=== PATIENT | female | born 1945 | race Caucasian/White ===

== ENCOUNTER 2017-08-29 20:37 | Inpatient (IN) | payer MEDICARE, BC ==
--- NOTE | 2017-08-29 22:41 | EDM.PDOC ---
ED HPI GENERAL MEDICAL PROBLEM - General Chief Complaint: Abdominal Pain Stated Complaint: FEVER/ABDOMINAL PAINS X 3 DAYS Time Seen by Provider: 08/29/17 20:53 Source of Information: Reports: Patient History Limitations: Reports: No Limitations - History of Present Illness INITIAL COMMENTS - FREE TEXT/NARRATIVE: This is a 72-year-old female. She saw her family doctor on Thursday and had blood work done that was completely normal. Then about 3 days ago she started having mid abdominal cramps and she went to the bathroom maybe 5 times that day with very small bowel movements and lots of gas. This continued yesterday with the same small bowel movements many times in gas. Then today she again really had no bowel movements but was passing mucus that was pretty much clearer and did not smell bad. She also states that this afternoon she had a fever of 102.8 orally when she got to the ER it was 101.9. She has been eating normally and denies any nausea or vomiting. She does have a history of 2 recent tick bites but she does not have any particular rash at the site oral bolus light rash noted at the sites. She has a history of 2 C-sections in the past she has no history of irritable bowel syndrome Crohn's or colitis and she has no history of constipation. Presently she is not having any particular pain or symptoms. 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 COORDINATOR: Reports: Other (see below) Other 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 COORDINATOR: none - Related Data Allergies Allergy/AdvReac Type Severity Reaction Status Date / Time minocycline AdvReac Dizziness Verified 08/30/17 00:40 Home Meds: Home Meds Aspirin [Children's Aspirin] 81 mg PO DAILY 12/10/13 [History] Ca Cmb No.1/Vit D3/B-6/FA/B12 [Vitamin D3 1,000 Unit] 1 tab PO DAILY 12/10/13 [ History] Calcium Citrate/Vitamin D3 [Calcium Citrate - Vit D3 Tab] 1 tab PO DAILY [History] Gluc HCl/Csa/Danya Hy/Hyalur Ac [Glucosamine Chondroitin] 1 tab PO DAILY [History] Hydrochlorothiazide 12.5 mg PO DAILY 12/10/13 [History] Lactobacillus Acidophilus [Probiotic] 1 each PO DAILY 12/10/13 [History] Multivit-Min/FA/Lycopene/Lut [Centrum Silver] 1 tab PO DAILY 12/10/13 [History] Valsartan/Hydrochlorothiazide [Valsartan-Hctz 320-12.5 mg Tab] 320 mg PO DAILY 12/10/13 [History] Nebivolol [Bystolic] 2.5 mg PO BID 10/08/15 [History] Fish Oil/[place]-3 Fatty Acids [Fish Oil] 1 each PO DAILY 08/29/17 [History] Fish Oil/[place]-3 Fatty Acids [Fish Oil] 1 tab PO DAILY 08/29/17 [History] Garlic [Garlique] 0 mg PO DAILY 08/29/17 [History] Ibuprofen [Motrin] 600 mg PO ASDIRECTED 08/29/17 [History] Magnesium 0 mg PO DAILY 08/29/17 [History] Pravastatin [Pravachol] 40 mg PO BEDTIME 08/29/17 [History] Ubidecarenone [Co Q-10] 0 mg PO DAILY 08/29/17 [History] Vit C/Mcmillan & Celery Ex/Grp E [Tart Mcmillan] 1 cap PO DAILY 08/29/17 [History] Past Medical History HEENT History: Reports: Impaired Vision Cardiovascular History: Reports: Hypertension Genitourinary History: Reports: UTI, Recurrent 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: Musculoskeletal History: Reports: Back Pain, Chronic Neurological History: Reports: Cerebral Aneurysms - Past Surgical History Female Surgical History: Reports: Section Social & Family History - Family History Family Medical History: Noncontributory Cardiac: Reports: Hypertension Musculoskeletal: Reports: Other (See Below) Other Musculoskeletal Family History: ALS Oncologic: Reports: Bladder, Breast, Hodgkin's Lymphoma, Leukemia, Lung - Tobacco Use Smoking Status *Q: Former Smoker Used Tobacco, but Quit: Yes Month/Year Tobacco Last Used: 35 yr - Caffeine Use Caffeine Use: Reports: Coffee, Soda - Recreational Drug Use Recreational Drug Use: No ED ROS GENERAL - Review of Systems Review Of Systems: See Below Constitutional: Reports: Fever, Chills HEENT: Denies: Sinus Problem, Throat Pain Respiratory: Denies: Shortness of Breath, Cough Cardiovascular: Denies: Chest Pain Endocrine: Reports: No Symptoms GI/Abdominal: Reports: Abdominal Pain. Denies: Black Stool, Bloody Stool, Constipation, Diarrhea, Nausea, Vomiting : Denies: Dysuria Musculoskeletal: Reports: No Symptoms Skin: Reports: No Symptoms Neurological: Reports: No Symptoms Psychiatric: Reports: No Symptoms Hematologic/Lymphatic: Reports: No Symptoms ED EXAM, GI/ABD - Physical Exam Exam: See Below Exam Limited By: No Limitations General Appearance: Alert, WD/WN, No Apparent Distress Eyes: Bilateral: Normal Appearance Ears: Normal External Exam Nose: Normal Inspection Throat/Mouth: Normal Inspection, Normal Lips, Normal Oropharynx, Normal Voice, No Airway Compromise Head: Normocephalic Neck: Supple Respiratory/Chest: No Respiratory Distress, Lungs Clear, Normal Breath Sounds Cardiovascular: Regular Rate, Rhythm, No Murmur GI/Abdominal Exam: Soft, Other (She does not have any localized pain on palpation of her abdomen and her bowel sounds are positive but they are quiet, when she points to where it bothers her when she gets the cramps that seems to be the mid abdomen area, the lower quadrants are not significantly tender on palpation, her upper quadrant both left and right are not particularly tender on palpation) Back Exam: Full Range of Motion Extremities: Normal Inspection, Normal Range of Motion Neurological: Alert, Oriented Psychiatric: Normal Affect, Normal Mood Skin Exam: Warm, Dry, Other (The to tick bite areas one on her left flank and one on her right buttocks has some local inflammation but no rash and no bull's- eye rash noted) Course - Vital Signs Last Recorded V/S: Last Vital Signs Temp 100.7 F H 08/29/17 23:15 Pulse 87 08/29/17 20:55 Resp 20 08/29/17 20:55 BP 166/66 H 08/29/17 20:55 Pulse Ox 96 08/29/17 20:55 - Orders/Labs/Meds Orders: Active Orders 24 hr Category Date Time Status Abdomen 2V AP Flat Upright [CR] Stat Exams 08/29/17 21:24 Taken Abdomen Pelvis w Cont [CT] Stat Exams 08/29/17 22:35 Taken Levofloxacin/Dextrose 5%-Water [Levaquin in D5W 750 MG/ Med 08/30/17 00:55 Ordered 150 ML] 750 mg Premix Bag 1 bag IV ONETIME Labs: Laboratory Tests 08/29/17 08/29/17 08/29/17 Range/Units 20:55 20:55 21:36 WBC 17.45 H (3.98-10.04) K/mm3 RBC 4.66 (3.98-5.22) M/mm3 Hgb 13.3 (11.2-15.7) gm/L Hct 41.7 (34.1-44.9) % MCV 89.5 (79.4-94.8) fl MCH 28.5 (25.6-32.2) pg MCHC 31.9 L (32.2-35.5) g/dl RDW Std Deviation 44.2 (36.4-46.3) fL Plt Count 241 (182-369) K/mm3 MPV 10.8 (9.4-12.3) fl Neut % (Auto) 78.3 H (34.0-71.1) % Lymph % (Auto) 12.5 L (19.3-51.7) % [place] % (Auto) 8.2 (4.7-12.5) % Eos % (Auto) 0.5 L (0.7-5.8) Baso % (Auto) 0.2 (0.1-1.2) % Neut # (Auto) 13.66 H (1.56-6.13) K/mm3 Lymph # (Auto) 2.18 (1.18-3.74) K/mm3 [place] # (Auto) 1.43 H (0.24-0.36) K/mm3 Eos # (Auto) 0.08 (0.04-0.36) K/mm3 Baso # (Auto) 0.04 (0.01-0.08) K/mm3 Sodium 138 (136-145) mEq/L Potassium 4.0 (3.5-5.1) mEq/L Chloride 101 (98-107) mEq/L Carbon Dioxide 27 (21-32) mEq/L Anion Gap 14.0 (5-15) BUN 16 (7-18) mg/dL Creatinine 1.0 (0.55-1.02) mg/dL Est Cr Clr Drug Dosing 48.00 mL/min Estimated GFR (MDRD) 54 (>60) mL/min BUN/Creatinine Ratio 16.0 (14-18) Glucose 116 H (83-115) mg/dL Calcium 9.0 (8.5-10.1) mg/dL Total Bilirubin 0.4 (0.2-1.0) mg/dL AST 14 L (15-37) U/L ALT 21 (14-59) U/L Alkaline Phosphatase 75 (46-116) U/L Total Protein 7.8 (6.4-8.2) g/dl Albumin 3.8 (3.4-5.0) g/dl Globulin 4.0 gm/dL Albumin/Globulin Ratio 1.0 (1-2) Lipase 106 (73-393) U/L Urine Color Yellow (Yellow) Urine Appearance Clear (Clear) Urine pH 8.0 (5.0-8.0) Ur Specific [place] 1.020 (1.005-1.030) Urine Protein Trace H (Negative) Urine Glucose (UA) Negative (Negative) Urine Ketones Negative (Negative) Urine Occult Blood 1+ H (Negative) Urine Nitrite Negative (Negative) Urine Bilirubin Negative (Negative) Urine Urobilinogen 0.2 (0.2-1.0) Ur Leukocyte Esterase Negative (Negative) Urine RBC 5-10 H (0-5) /hpf Urine WBC Not seen (0-5) /hpf Ur Epithelial Cells Not seen (0-5) /hpf Urine Bacteria Rare (FEW) /hpf Urine Mucus Not seen (FEW) /hpf Meds: Medications Discontinued Medications Generic Name Dose Route Start Last Admin Trade Name Freq PRN Reason Stop Dose Admin Diatrizoate Meglum/Diatrizoate Sod 90 ml 08/29/17 23:34 08/29/17 23:48 Gastrografin 37% PO 08/29/17 23:35 90 ml ONETIME ONE Administration Iopamidol 125 ml 08/29/17 23:34 08/29/17 23:49 Isovue-300 (61%) IVPUSH 08/29/17 23:35 125 ml ONETIME ONE Administration Sodium Chloride 10 ml 08/29/17 23:34 08/29/17 23:49 Saline Flush FLUSH 08/29/17 23:35 10 ml ONETIME ONE Administration - Radiology Interpretation Free Text/Narrative:: CT scan of the abdomen would a uncomplicated sigmoid colon diverticulitis. - Re-Assessments/Exams Free Text/Narrative Re-Assessment/Exam: 08/30/17 00:56 I spoke to the patient regarding the CT scan findings. Her CT scan findings with the elevated white count and the fever suggests that she needs inpatient IV antibiotics until the white count comes down and the fever resolves. The patient is willing to be admitted for this. 08/30/17 00:[address] Olguin and she is willing to admit the patient for further evaluation and treatment Departure - Departure Time of Disposition: 00:58 Disposition: Admitted As Inpatient 64 Condition: Fair Clinical Impression: Sigmoid diverticulitis, Febrile illness, acute Leukocytosis Qualifiers: Leukocytosis type: unspecified Qualified Code(s): D72.829 - Elevated white blood cell count, unspecified - Discharge Information ED Communication - ED Communication Date/Time Date: 08/30/17 Time Called: 00:58 - Discussed Case With (1) Discussed Case With (1): Admitting Provider Person/s Notified (1): Brianna Olguin (She was admitted for further evaluation and treatment) - My Orders Last 24 Hours: My Active Orders 08/29/17 21:24 Abdomen 2V AP Flat Upright [CR] Stat 08/29/17 22:35 Abdomen Pelvis w Cont [CT] Stat 08/30/17 00:55 Levofloxacin/Dextrose 5%-Water [Levaquin in D5W 750 MG/150 ML] 750 mg Premix Bag 1 bag IV ONETIME - Assessment/Plan Last 24 Hours: My Active Orders 08/29/17 21:24 Abdomen 2V AP Flat Upright [CR] Stat 08/29/17 22:35 Abdomen Pelvis w Cont [CT] Stat 08/30/17 00:55 Levofloxacin/Dextrose 5%-Water [Levaquin in D5W 750 MG/150 ML] 750 mg Premix Bag 1 bag IV ONETIME
[2017-08-29] MEDS ORDERED: Diatrizoate Meglumine/Diatrizoate Sodium 37% 120 ML Bottle PO ONE (23:34)
[2017-08-29] MEDS ORDERED: Sodium Chloride 0.9% 10 ML Syringe FLUSH ONE (23:34)
[2017-08-29] MEDS ORDERED: Iopamidol 612 MG/ML 150 ML Bottle IVPUSH ONE (23:34)
[2017-08-30] MEDS ORDERED: Levofloxacin/Dextrose 5%-Water 750 MG in Premix Bag 1 BAG IV ONE (00:55)
[2017-08-30] MEDS ORDERED: Sodium Chloride 0.9% 1,000 ML IV SCH ×2 (03:00→04:45)
[2017-08-30] MEDS ORDERED: HYDROmorphone 2 MG Tab PO PRN (04:34)
[2017-08-30] MEDS ORDERED: HYDROmorphone 0.5 MG/0.5 ML SYRINGE IVPUSH PRN ×2 (04:38→04:40)
[2017-08-30] MEDS ORDERED: Ondansetron 4 MG/2 ML SDV IVPUSH PRN (04:40)
--- NOTE | 2017-08-30 13:47 | PCM.HP ---
H&P History of Present Illness - General Date of Service: 08/30/17 Admit Problem/Dx: Admission Diagnosis/Problem Admission Diagnosis/Problem Diverticulitis Source of Information: Patient, Provider History Limitations: Reports: No Limitations - History of Present Illness Initial Comments - Free Text/Narative: 72 year old female with 3-4 days history of abdominal pain, has been admitted for diverticulitis. She had a documented fever of 102.8 RO[address] ADVISOR. The ED documented 101.9. The patient has had nausea with vomiting, this has occurred with frequent bowel movements. The stool had associated mucous but no blood. She has had no previous episodes. The patient's WBCs are 17, 000. There is a left shift. A CT of the abdomen/pelvis shows sigmoid colon diverticulitis. Levoquin was started in the ED, Flagyl will be started on admission. The patient will go to [place] with telemetry. She is a full code. Onset of Symptoms: Reports: Gradual Symptom Onset Date: 08/27/17 Duration of Symptoms: Reports: Day(s):, Getting Worse Location: Reports: Abdomen, Generalized Severity: Moderate Improves with: Reports: Medication Worsens with: Reports: Eating Associated Symptoms: Reports: Loss of Appetite, Nausea/Vomiting, Weakness - Related Data Allergies/Adverse Reactions: Allergies Allergy/AdvReac Type Severity Reaction Status Date / Time minocycline AdvReac Dizziness Verified 08/30/17 00:40 Home Medications: Home Meds Aspirin [Children's Aspirin] 81 mg PO DAILY 12/10/13 [History] Gluc HCl/Csa/Danya Hy/Hyalur Ac [Glucosamine Chondroitin] 1 tab PO DAILY [History] Lactobacillus Acidophilus [Probiotic] 1 each PO DAILY 12/10/13 [History] Multivit-Min/FA/Lycopene/Lut [Centrum Silver] 1 tab PO DAILY 12/10/13 [History] Valsartan/Hydrochlorothiazide [Valsartan-Hctz 320-12.5 mg Tab] 320 mg PO DAILY 12/10/13 [History] Nebivolol [Bystolic] 2.5 mg PO BID 10/08/15 [History] Fish Oil/[place]-3 Fatty Acids [Fish Oil] 1 each PO DAILY 08/29/17 [History] Garlic [Garlique] 1 tab PO DAILY 08/29/17 [History] Ibuprofen [Motrin] 600 mg PO ASDIRECTED 08/29/17 [History] Magnesium 1 tab PO DAILY 08/29/17 [History] Pravastatin [Pravachol] 40 mg PO BEDTIME 08/29/17 [History] Ubidecarenone [Co Q-10] 1 tab PO DAILY 08/29/17 [History] Vit C/Mcmillan & Celery Ex/Grp E [Tart Mcmillan] 1 cap PO DAILY 08/29/17 [History] Allopurinol [Zyloprim] 50 mg PO BEDTIME 08/30/17 [History] Calcium Citrate/Vitamin D3 [Calcium Citrate - Vit D Caplet] 1 tab PO DAILY 08/30 [History] Carboxymethyl/Glycerin/Poly80 [Refresh Optive Advanced Drops] 1 drop EYEBOTH DAILY 08/30/17 [History] Cholecalciferol (Vitamin D3) [Vitamin D3] 1,000 units PO DAILY 08/30/17 [History ] Past Medical History HEENT History: Reports: Impaired Vision Cardiovascular History: Reports: Hypertension Genitourinary History: Reports: UTI, Recurrent 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: Musculoskeletal History: Reports: Back Pain, Chronic Neurological History: Reports: Cerebral Aneurysms - Infectious Disease History Infectious Disease History: Reports: Chicken Pox, Influenza, Measles - Past Surgical History HEENT Surgical History: Reports: Tonsillectomy Female Surgical History: Reports: Section Social & Family History - Family History Family Medical History: Noncontributory Cardiac: Reports: Hypertension Musculoskeletal: Reports: Other (See Below) Other Musculoskeletal Family History: ALS Oncologic: Reports: Bladder, Breast, Hodgkin's Lymphoma, Leukemia, Lung - Tobacco Use Smoking Status *Q: Former Smoker Years of Tobacco use: 7 Packs/Tins Daily: 0.5 Used Tobacco, but Quit: Yes Month/Year Tobacco Last Used: 03/1979 Second Hand Smoke Exposure: No - Caffeine Use Caffeine Use: Reports: Coffee - Recreational Drug Use Recreational Drug Use: No H&P Review of Systems - Review of Systems: Review Of Systems: See Below General: Reports: Fever, Chills, Malaise, Weakness HEENT: Reports: No Symptoms Pulmonary: Reports: No Symptoms Cardiovascular: Reports: No Symptoms Gastrointestinal: Reports: Abdominal Pain, Mucous in Stool Genitourinary: Reports: No Symptoms Musculoskeletal: Reports: No Symptoms Skin: Reports: No Symptoms Psychiatric: Reports: No Symptoms Neurological: Reports: No Symptoms Hematologic/Lymphatic: Reports: No Symptoms Immunologic: Reports: No Symptoms Exam - Exam Exam: See Below - Vital Signs Vital Signs: Last Vital Signs Temp 37.2 C 08/30/17 08:03 Pulse 73 08/30/17 08:03 Resp 18 08/30/17 08:03 BP 129/47 L 08/30/17 08:03 Pulse Ox 96 08/30/17 08:03 Weight: 54.839 kg - Exam Quality Assessment: Supplemental Oxygen, DVT Prophylaxis General: Alert, Oriented, Cooperative HEENT: Conjunctiva Clear, Nares Patent, Normal Nasal Septum, Pupils Equal, Pupils Reactive, PERRLA Neck: Supple, Trachea Midline Lungs: Normal Respiratory Effort Cardiovascular: Regular Rate, Regular Rhythm GI/Abdominal Exam: Normal Bowel Sounds, Soft, No Organomegaly, No Distention, Tender (diffuse with palpation) (Female) Exam: Deferred Rectal (Female) Exam: Deferred Back Exam: Normal Inspection Extremities: Normal Inspection, No Pedal Edema, Normal Capillary Refill Skin: Warm Neurological: Cranial Nerves Intact Neuro Extensive - Mental Status: Alert, Oriented x3, Normal Mood/Affect, Normal Cognition, Memory Intact - Patient Data Lab Results Last 24 hrs: Laboratory Results - last 24 hr 08/29/17 08/29/17 08/29/17 Range/Units 20:55 20:55 21:36 WBC 17.45 H (3.98-10.04) K/mm3 RBC 4.66 (3.98-5.22) M/mm3 Hgb 13.3 (11.2-15.7) gm/L Hct 41.7 (34.1-44.9) % MCV 89.5 (79.4-94.8) fl MCH 28.5 (25.6-32.2) pg MCHC 31.9 L (32.2-35.5) g/dl RDW Std Deviation 44.2 (36.4-46.3) fL Plt Count 241 (182-369) K/mm3 MPV 10.8 (9.4-12.3) fl Neut % (Auto) 78.3 H (34.0-71.1) % Lymph % (Auto) 12.5 L (19.3-51.7) % [place] % (Auto) 8.2 (4.7-12.5) % Eos % (Auto) 0.5 L (0.7-5.8) Baso % (Auto) 0.2 (0.1-1.2) % Neut # (Auto) 13.66 H (1.56-6.13) K/mm3 Lymph # (Auto) 2.18 (1.18-3.74) K/mm3 [place] # (Auto) 1.43 H (0.24-0.36) K/mm3 Eos # (Auto) 0.08 (0.04-0.36) K/mm3 Baso # (Auto) 0.04 (0.01-0.08) K/mm3 Manual Slide Review Sodium 138 (136-145) mEq/L Potassium 4.0 (3.5-5.1) mEq/L Chloride 101 (98-107) mEq/L Carbon Dioxide 27 (21-32) mEq/L Anion Gap 14.0 (5-15) BUN 16 (7-18) mg/dL Creatinine 1.0 (0.55-1.02) mg/dL Est Cr Clr Drug Dosing 48.00 mL/min Estimated GFR (MDRD) 54 (>60) mL/min BUN/Creatinine Ratio 16.0 (14-18) Glucose 116 H (83-115) mg/dL Lactic Acid (0.4-2.0) mmol/L Calcium 9.0 (8.5-10.1) mg/dL Magnesium (1.8-2.4) mg/dl Total Bilirubin 0.4 (0.2-1.0) mg/dL AST 14 L (15-37) U/L ALT 21 (14-59) U/L Alkaline Phosphatase 75 (46-116) U/L Total Protein 7.8 (6.4-8.2) g/dl Albumin 3.8 (3.4-5.0) g/dl Globulin 4.0 gm/dL Albumin/Globulin Ratio 1.0 (1-2) Lipase 106 (73-393) U/L Urine Color Yellow (Yellow) Urine Appearance Clear (Clear) Urine pH 8.0 (5.0-8.0) Ur Specific [place] 1.020 (1.005-1.030) Urine Protein Trace H (Negative) Urine Glucose (UA) Negative (Negative) Urine Ketones Negative (Negative) Urine Occult Blood 1+ H (Negative) Urine Nitrite Negative (Negative) Urine Bilirubin Negative (Negative) Urine Urobilinogen 0.2 (0.2-1.0) Ur Leukocyte Esterase Negative (Negative) Urine RBC 5-10 H (0-5) /hpf Urine WBC Not seen (0-5) /hpf Ur Epithelial Cells Not seen (0-5) /hpf Urine Bacteria Rare (FEW) /hpf Urine Mucus Not seen (FEW) /hpf 08/30/17 08/30/17 08/30/17 Range/Units 06:02 06:02 06:02 WBC 17.71 H (3.98-10.04) K/mm3 RBC 4.27 (3.98-5.22) M/mm3 Hgb 12.2 (11.2-15.7) gm/L Hct 38.4 (34.1-44.9) % MCV 89.9 (79.4-94.8) fl MCH 28.6 (25.6-32.2) pg MCHC 31.8 L (32.2-35.5) g/dl RDW Std Deviation 44.7 (36.4-46.3) fL Plt Count 223 (182-369) K/mm3 MPV 10.8 (9.4-12.3) fl Neut % (Auto) 77.6 H (34.0-71.1) % Lymph % (Auto) 11.5 L (19.3-51.7) % [place] % (Auto) 10.1 (4.7-12.5) % Eos % (Auto) 0.4 L (0.7-5.8) Baso % (Auto) 0.2 (0.1-1.2) % Neut # (Auto) 13.74 H (1.56-6.13) K/mm3 Lymph # (Auto) 2.04 (1.18-3.74) K/mm3 [place] # (Auto) 1.78 H (0.24-0.36) K/mm3 Eos # (Auto) 0.07 (0.04-0.36) K/mm3 Baso # (Auto) 0.04 (0.01-0.08) K/mm3 Manual Slide Review Normal smear Sodium 139 (136-145) mEq/L Potassium 4.1 (3.5-5.1) mEq/L Chloride 103 (98-107) mEq/L Carbon Dioxide 30 (21-32) mEq/L Anion Gap 10.1 (5-15) BUN 13 (7-18) mg/dL Creatinine 1.0 (0.55-1.02) mg/dL Est Cr Clr Drug Dosing 42.73 mL/min Estimated GFR (MDRD) 54 (>60) mL/min BUN/Creatinine Ratio 13.0 L (14-18) Glucose 118 H (83-115) mg/dL Lactic Acid 0.6 (0.4-2.0) mmol/L Calcium 8.5 (8.5-10.1) mg/dL Magnesium 1.9 (1.8-2.4) mg/dl Total Bilirubin (0.2-1.0) mg/dL AST (15-37) U/L ALT (14-59) U/L Alkaline Phosphatase (46-116) U/L Total Protein (6.4-8.2) g/dl Albumin (3.4-5.0) g/dl Globulin gm/dL Albumin/Globulin Ratio (1-2) Lipase (73-393) U/L Urine Color (Yellow) Urine Appearance (Clear) Urine pH (5.0-8.0) Ur Specific [place] (1.005-1.030) Urine Protein (Negative) Urine Glucose (UA) (Negative) Urine Ketones (Negative) Urine Occult Blood (Negative) Urine Nitrite (Negative) Urine Bilirubin (Negative) Urine Urobilinogen (0.2-1.0) Ur Leukocyte Esterase (Negative) Urine RBC (0-5) /hpf Urine WBC (0-5) /hpf Ur Epithelial Cells (0-5) /hpf Urine Bacteria (FEW) /hpf Urine Mucus (FEW) /hpf Result Diagrams: 08/30/17 06:02 18 06:02 - Problem List (1) Cerebral aneurysm SNOMED Code(s): 882647477 ICD Code: I67.1 - CEREBRAL ANEURYSM, NONRUPTURED Status: Acute Current Visit: Yes (2) Febrile illness, acute SNOMED Code(s): 730107572 ICD Code: R50.9 - FEVER, UNSPECIFIED Status: Acute Current Visit: Yes (3) Leukocytosis SNOMED Code(s): 012918646, 448460469 ICD Code: D72.829 - ELEVATED WHITE BLOOD CELL COUNT, UNSPECIFIED Status: Acute Current Visit: Yes Qualifiers: Leukocytosis type: unspecified Qualified Code(s): D72.829 - Elevated white blood cell count, unspecified (4) Sigmoid diverticulitis SNOMED Code(s): 356239141 ICD Code: K57.32 - DVTRCLI OF LG INT W/O PERFORATION OR ABSCESS W/O BLEEDING Status: Acute Current Visit: Yes (5) Hypertension SNOMED Code(s): 77548077 ICD Code: I10 - ESSENTIAL (PRIMARY) HYPERTENSION Status: Acute Current Visit: No (6) Hyperlipidemia SNOMED Code(s): 94910385 ICD Code: E78.5 - HYPERLIPIDEMIA, UNSPECIFIED Status: Acute Current Visit : Yes Problem List Initiated/Reviewed/Updated: Yes Orders Last 24hrs: Active Orders 24 hr Category Date Time Status Admission Status [Patient Status] [ADT] Routine ADT 08/30/17 03:16 Active Up With Assistance [RC] 08,20 Care 08/30/17 04:35 Active NPO Now [Nothing per Oral Now Diet] [DIET] Diet 08/30/17 Breakfast Active Abdomen 2V AP Flat Upright [CR] Stat Exams 08/29/17 21:24 Taken Abdomen Pelvis w Cont [CT] Stat Exams 08/29/17 22:35 Taken Acetaminophen [Tylenol] Med 08/30/17 04:54 Active 650 mg PO Q4H PRN HYDROmorphone [Dilaudid] Med 08/30/17 04:40 Active 0.25 mg IVPUSH Q6H PRN Ondansetron [Zofran] Med 08/30/17 04:40 Active 4 mg IVPUSH Q8H PRN Sodium Chloride 0.9% [Normal Saline] 1,000 ml Med 08/30/17 04:45 Active IV ASDIRECTED Temazepam [Restoril] Med 08/30/17 04:37 Active 7.5 mg PO BEDTIME PRN ROSALINE Hose [Antiembolic Hose] [OM.PC] Routine Oth 08/30/17 04:52 Ordered Code Status [Resuscitation Status] Routine Resus Stat 08/30/17 04:34 Ordered Medication Orders Acetaminophen (Tylenol) 650 mg PO Q4H PRN PRN Reason: Pain/Fever Hydromorphone HCl (Dilaudid) 0.25 mg IVPUSH Q6H PRN PRN Reason: Pain Sodium Chloride (Normal Saline) 1,000 mls @ 100 mls/hr IV ASDIRECTED MARAL Ondansetron HCl (Zofran) 4 mg IVPUSH Q8H PRN PRN Reason: Nausea/Vomiting Temazepam (Restoril) 7.5 mg PO BEDTIME PRN PRN Reason: Insomnia Assessment/Plan Comment:: Impression: Sigmoid diverticulitis Leukocytosis Dehydration CHARITO Chronic CKD, stage II HTN HLD Former Tobacco Plan: IVF Levoquin/Flagyl Analgesics NPO except meds/H20/ice chips Daily labs Home meds DVT/GI prophylaxis Consult CM/PT/OT as needed
[2017-08-30] MEDS: Sodium Chloride 0.9% 1,000 ML IV SCH ×2 (13:48→23:10)
[2017-08-30] MEDS ORDERED: Ketorolac 15 MG/ML SDV IVPUSH PRN (14:01)
[2017-08-30] MEDS: metroNIDAZOLE/Normal Saline 500 MG in Premix Bag 1 BAG IV SCH ×2 (15:10→21:00)
[2017-08-30] MEDS: Enoxaparin 40 MG/0.4 ML Syringe SUBCUT SCH (15:10)
[2017-08-30] MEDS: Carvedilol 3.125 MG Tab PO SCH (20:12)
[2017-08-30] MEDS: Allopurinol 100 MG Tab PO SCH (20:12)
[2017-08-30] MEDS: Simvastatin 20 MG Tab PO SCH (20:13)
[2017-08-30] MEDS: Temazepam 7.5 MG Cap PO PRN (20:16)
[2017-08-30] MEDS: Acetaminophen 325 MG Tab PO PRN (20:16)
[2017-08-31] MEDS: metroNIDAZOLE/Normal Saline 500 MG in Premix Bag 1 BAG IV SCH ×2 (06:05→14:14)
--- NOTE | 2017-08-31 07:00 | CR ---
Abdomen: Supine and upright views of the abdomen were obtained. Comparison: No prior abdominal x-ray. Degenerative change is scattered within the spine. No free air is seen. Bowel gas pattern is unremarkable. Calcifications are seen within the pelvis which are compatible with phleboliths. Surgical clips are seen within the right breast. Impression: 1. Nothing acute is seen on two-view abdominal x-ray. Diagnostic code #2
--- NOTE | 2017-08-31 07:00 | CT ---
CT abdomen and pelvis Technique: Multiple axial sections were obtained from above the dome of the diaphragm inferiorly through the pubic symphysis. Intravenous and oral contrast was utilized. Delayed images were also obtained through the abdomen and pelvis. Comparison: Previous MRI abdominal study of 05/14/[address] abdomen study of 07/31/11. Numerous diverticuli are seen within the sigmoid colon with area of bowel wall thickening and surrounding inflammatory change compatible with diverticulitis. Minimal increased stool is seen within the colon. Visualized lung bases show mild areas of scarring and atelectasis. Liver shows no focal parenchymal abnormality. Small to moderate-sized hiatal hernia is seen. Contrast noted within the distal esophagus compatible with reflux. Spleen appears within normal limits. Calcifications are seen within the gallbladder compatible with large gallstones. Kidneys show symmetric contrast enhancement. Parapelvic cyst is noted within the right kidney. Delayed images show contrast throughout the ureters and bladder without evidence of obstruction. Left adrenal mass is seen. This finding measures approximately 1.7 cm in size. This is believed to be stable when allowing for differences in measurement technique. Right adrenal gland is normal. Pancreas is within normal limits. Aorta shows no aneurysmal dilatation. No retroperitoneal adenopathy or mesenteric abnormalities are seen. No pelvic mass or adenopathy is identified. Impression: 1. Findings compatible with diverticulitis within the sigmoid colon. 2. Small to moderate size hiatal hernia with gastroesophageal reflux. 3. Stable left-sided adrenal nodule. 4. Large gallstone within the gallbladder. 5. Other incidental findings. Diagnostic code #3 I agree with preliminary report from [facility], finalized at 08/30/17, 1:12 AM Central Time
[2017-08-31] MEDS: Carvedilol 3.125 MG Tab PO SCH ×2 (08:43→21:11)
[2017-08-31] MEDS: Aspirin 81 MG Tab.Chew PO SCH (08:44)
[2017-08-31] MEDS: Calcium Carbonate/Vitamin D3 600 MG-200 Units Tab PO SCH (08:44)
[2017-08-31] MEDS: Sodium Chloride 0.9% 1,000 ML IV SCH (08:44)
[2017-08-31] MEDS: Saccharomyces Boulardii (Probiotic) 250 MG Cap PO SCH (08:44)
[2017-08-31] MEDS ORDERED: Non-Formulary Medication 1 Each (Ubidecarenone [Co Q-10] 1 TAB) PO SCH (09:00)
[2017-08-31] MEDS ORDERED: MAGNESIUM PO SCH (09:00)
--- NOTE | 2017-08-31 13:54 | PCM.PN ---
- General Info Date of Service: 08/31/17 Admission Dx/Problem (Free Text): Admission Diagnosis/Problem Admission Diagnosis/Problem Diverticulitis Subjective Update: In to see [place] today. She is lying in bed. Overall she is doing quite well and states she is feeling better. She has no complaints. She has been sleeping well. Good appetite. Ambulating. Pain is controlled. No fever, abdominal pain, nausea, vomiting. She is having some loose stools, but she says it's not diarrhea. She is also having some gas. Urinating. Incentive Spirometry. No concerns from nursing. Will most likely be D/C'd home tomorrow or Thursday pending clinical disposition. Functional Status: Reports: Pain Controlled, Tolerating Diet, Ambulating, Urinating - Review of Systems General: Reports: No Symptoms. Denies: Fever, Chills HEENT: Reports: No Symptoms Pulmonary: Reports: No Symptoms. Denies: Shortness of Breath, Cough Cardiovascular: Reports: No Symptoms. Denies: Chest Pain Gastrointestinal: Reports: Diarrhea, Flatus. Denies: Abdominal Pain, Nausea, Vomiting Genitourinary: Reports: No Symptoms Musculoskeletal: Reports: No Symptoms Skin: Reports: No Symptoms Neurological: Reports: No Symptoms Psychiatric: Reports: No Symptoms - Patient Data Vitals - Most Recent: Last Vital Signs Temp 97.9 F 08/31/17 08:38 Pulse 74 08/31/17 08:43 Resp 16 08/31/17 08:38 BP 140/80 08/31/17 08:43 Pulse Ox 96 08/31/17 08:38 Weight - Most Recent: 220 lb 14.4 oz I&O - Last 24 Hours: Intake & Output 08/30/17 08/31/17 08/31/17 22:59 06:59 14:59 Intake Total 1320 1421 Output Total 150 475 Balance 1170 946 Lab Results Last 24 Hours: Laboratory Results - last 24 hr 08/31/17 08/31/17 Range/Units 05:40 05:40 WBC 10.55 H (3.98-10.04) K/mm3 RBC 4.11 (3.98-5.22) M/mm3 Hgb 11.9 (11.2-15.7) gm/L Hct 37.4 (34.1-44.9) % MCV 91.0 (79.4-94.8) fl MCH 29.0 (25.6-32.2) pg MCHC 31.8 L (32.2-35.5) g/dl RDW Std Deviation 44.0 (36.4-46.3) fL Plt Count 206 (182-369) K/mm3 MPV 11.0 (9.4-12.3) fl Neut % (Auto) 74.9 H (34.0-71.1) % Lymph % (Auto) 15.1 L (19.3-51.7) % Petroleum % (Auto) 8.1 (4.7-12.5) % Eos % (Auto) 1.5 (0.7-5.8) Baso % (Auto) 0.2 (0.1-1.2) % Neut # (Auto) 7.91 H (1.56-6.13) K/mm3 Lymph # (Auto) 1.59 (1.18-3.74) K/mm3 Petroleum # (Auto) 0.85 H (0.24-0.36) K/mm3 Eos # (Auto) 0.16 (0.04-0.36) K/mm3 Baso # (Auto) 0.02 (0.01-0.08) K/mm3 Sodium 140 (136-145) mEq/L Potassium 3.6 (3.5-5.1) mEq/L Chloride 106 (98-107) mEq/L Carbon Dioxide 26 (21-32) mEq/L Anion Gap 11.6 (5-15) BUN 14 (7-18) mg/dL Creatinine 0.8 (0.55-1.02) mg/dL Est Cr Clr Drug Dosing 60.00 mL/min Estimated GFR (MDRD) > 60 (>60) mL/min BUN/Creatinine Ratio 17.5 (14-18) Glucose 94 (83-115) mg/dL Calcium 8.2 L (8.5-10.1) mg/dL Med Orders - Current: Current Medications Acetaminophen (Tylenol) 650 mg PO Q4H PRN PRN Reason: Pain/Fever Last Admin: 08/30/17 20:16 Dose: 650 mg Allopurinol (Zyloprim) 50 mg PO BEDTIME [facility] Last Admin: 08/30/17 20:12 Dose: 50 mg Aspirin (Aspirin) 81 mg PO DAILY [facility] Last Admin: 08/31/17 08:44 Dose: 81 mg Calcium Carbonate (Calcium Carbonate/Vitamin D 600 Mg-200 Unit) 1 tab PO DAILY [facility] Last Admin: 08/31/17 08:44 Dose: 1 tab Carvedilol (Coreg) 3.125 mg PO BID [facility] Last Admin: 08/31/17 08:43 Dose: 3.125 mg Enoxaparin Sodium (Lovenox) 40 mg SUBCUT Q24H [facility] Last Admin: 08/30/17 15:10 Dose: 40 mg Hydromorphone HCl (Dilaudid) 0.25 mg IVPUSH Q6H PRN PRN Reason: Pain Sodium Chloride (Normal Saline) 1,000 mls @ 100 mls/hr IV ASDIRECTED [facility] Last Admin: 08/31/17 08:44 Dose: 100 mls/hr Levofloxacin/Dextrose 750 mg/ (Premix) 150 mls @ 100 mls/hr IV Q48H [facility] Metronidazole 500 mg/ Premix 100 mls @ 100 mls/hr IV Q8H [facility] Last Admin: 08/31/17 06:05 Dose: 100 mls/hr Ketorolac Tromethamine (Toradol) 15 mg IVPUSH Q8H PRN PRN Reason: Abdominal Pain Ondansetron HCl (Zofran) 4 mg IVPUSH Q8H PRN PRN Reason: Nausea/Vomiting Saccharomyces Boulardii (Florastor) 250 mg PO DAILY [facility] Last Admin: 08/31/17 08:44 Dose: 250 mg Simvastatin (Zocor) 20 mg PO BEDTIME [facility] Last Admin: 08/30/17 20:13 Dose: 20 mg Temazepam (Restoril) 7.5 mg PO BEDTIME PRN PRN Reason: Insomnia Last Admin: 08/30/17 20:16 Dose: 7.5 mg Discontinued Medications Diatrizoate Meglum/Diatrizoate Sod (Gastrografin 37%) 90 ml PO ONETIME ONE Stop: 08/29/17 23:35 Last Admin: 08/29/17 23:48 Dose: 90 ml Hydromorphone HCl (Dilaudid) 0.25 mg PO Q6H PRN PRN Reason: Pain Hydromorphone HCl (Dilaudid) 0.5 mg IVPUSH Q4H PRN PRN Reason: pain Levofloxacin/Dextrose 750 mg/ (Premix) 150 mls @ 100 mls/hr IV ONETIME ONE Stop: 08/30/17 02:24 Last Admin: 08/30/17 01:17 Dose: 100 mls/hr Sodium Chloride (Normal Saline) 1,000 mls @ 100 mls/hr IV ASDIRECTED [facility] Last Admin: 08/30/17 03:10 Dose: 100 mls/hr Sodium Chloride (Normal Saline) 1,000 mls @ 100 mls/hr IV ASDIRECTED [facility] Iopamidol (Isovue-300 (61%)) 125 ml IVPUSH ONETIME ONE Stop: 08/29/17 23:35 Last Admin: 08/29/17 23:49 Dose: 125 ml Non-Formulary Medication (Magnesium [Magnesium]) 1 tab PO DAILY [facility] Non-Formulary Medication (Ubidecarenone [Co Q-10]) 1 tab PO DAILY [facility] Sodium Chloride (Saline Flush) 10 ml FLUSH ONETIME ONE Stop: 08/29/17 23:35 Last Admin: 08/29/17 23:49 Dose: 10 ml - Exam Quality Assessment: DVT Prophylaxis General: Alert, Oriented, Cooperative, No Acute Distress HEENT: Pupils Equal, Pupils Reactive, EOMI, Mucous Membr. Moist/[place] Neck: Supple Lungs: Clear to Auscultation, Normal Respiratory Effort Cardiovascular: Regular Rate, Regular Rhythm GI/Abdominal Exam: Normal Bowel Sounds, Soft, Non-Tender, No Organomegaly, No Distention, No Abnormal Bruit, No Mass, Pelvis Stable, Abnormal Bowel Sounds ( hyperactive) (Female) Exam: Deferred Back Exam: Normal Inspection, Full Range of Motion Extremities: Normal Inspection, Normal Range of Motion, Non-Tender, No Pedal Edema, Normal Capillary Refill Peripheral Pulses: 2+: Posterior Tibial (L), Posterior Tibial (R), Dorsalis Pedis (L), Dorsalis Pedis (R) Skin: Warm, Dry, Intact Neurological: No New Focal Deficit Psy/Mental Status: Alert, Normal Affect, Normal Mood - Problem List & Annotations (1) Hyperlipidemia SNOMED Code(s): 25232761 Code(s): E78.5 - HYPERLIPIDEMIA, UNSPECIFIED Status: Chronic Priority: Low Current Visit: Yes Qualifiers: Hyperlipidemia type: unspecified Qualified Code(s): E78.5 - Hyperlipidemia , unspecified (2) Sigmoid diverticulitis SNOMED Code(s): 875664611 Code(s): K57.32 - DVTRCLI OF LG INT W/O PERFORATION OR ABSCESS W/O BLEEDING Status: Acute Priority: High Current Visit: Yes (3) Hypertension SNOMED Code(s): 92900757 Code(s): I10 - ESSENTIAL (PRIMARY) HYPERTENSION Status: Chronic Priority : Medium Current Visit: No Qualifiers: Hypertension type: unspecified Qualified Code(s): I10 - Essential (primary ) hypertension (4) CHARITO (acute kidney injury) SNOMED Code(s): 01087648 Code(s): N17.9 - ACUTE KIDNEY FAILURE, UNSPECIFIED Status: Acute Priority : High Current Visit: Yes (5) Dehydration SNOMED Code(s): 21393681 Code(s): E86.0 - DEHYDRATION Status: Resolved Priority: High Current Visit: Yes - Problem List Review Problem List Initiated/Reviewed/Updated: Yes - My Orders Last 24 Hours: My Active Orders 08/31/17 Lunch Full Liquid Diet [DIET] - Plan Plan:: I/P: Sigmoid diverticulitis -ED--> Fever of 101.9; Abdominal pain, small BMs, passing clear mucous and flatulence x3 days -WBC 17.45--> 17.71--> 10.55 -XR abdomen--> nothing acute -CT abdomen--> Diverticulitis within sigmoid colon -Levoquin/Flagyl -NPO except meds/H20/ice chips--> Advance to full liquid diet today -Consult to dietary for Diverticulitis diet recommendations Resolved: Dehydration -IVF--> D/C today CHARITO -eGFR 54--> now >60 -Cr 1.0--> 0.8 -BUN 16-->13-->14 -Hold Valsartan/HCTZ 320-12.5 --> Restart today -IVF Chronic: CKD, stage II HTN HLD Former Tobacco Plan: Transferred to Med Surg IVF Analgesics NPO except meds/H20/ice chips--> advance as tolerated Daily labs Home meds DVT/GI prophylaxis Consult CM/PT/OT as needed Pt is a Full code; PCP is Kwadwo Currie
[2017-08-31] MEDS ORDERED: Furosemide 20 MG/2 ML VIAL IVPUSH ONE (13:59)
[2017-08-31] MEDS: Enoxaparin 40 MG/0.4 ML Syringe SUBCUT SCH (14:14)
[2017-08-31] MEDS: Losartan 100 MG Tab PO SCH (14:14)
[2017-08-31] MEDS: Hydrochlorothiazide 12.5 MG Cap PO SCH (14:17)
[2017-08-31] MEDS ORDERED: Levofloxacin/Dextrose 5%-Water 750 MG in Premix Bag 1 BAG IV SCH (21:00)
[2017-08-31] MEDS: Allopurinol 100 MG Tab PO SCH (21:12)
[2017-08-31] MEDS: Simvastatin 20 MG Tab PO SCH (21:13)
[2017-08-31] MEDS: Temazepam 7.5 MG Cap PO PRN (21:15)
[2017-08-31] MEDS: Acetaminophen 325 MG Tab PO PRN (22:50)
[2017-09-01] MEDS: metroNIDAZOLE/Normal Saline 500 MG in Premix Bag 1 BAG IV SCH ×2 (00:19→05:36)
[2017-09-01] MEDS ORDERED: Levofloxacin/Dextrose 5%-Water 750 MG in Premix Bag 1 BAG IV SCH ×3 (01:00)
[2017-09-01 08:42] VITALS: BP 138/67
[2017-09-01] MEDS: Losartan 100 MG Tab PO SCH (09:59)
[2017-09-01] MEDS: Calcium Carbonate/Vitamin D3 600 MG-200 Units Tab PO SCH (10:03)
[2017-09-01] MEDS: Saccharomyces Boulardii (Probiotic) 250 MG Cap PO SCH (10:03)
[2017-09-01] MEDS: Hydrochlorothiazide 12.5 MG Cap PO SCH (10:03)
[2017-09-01] MEDS: Aspirin 81 MG Tab.Chew PO SCH (10:03)
[2017-09-01] MEDS: Carvedilol 3.125 MG Tab PO SCH (10:04)
[2017-09-01] MEDS ORDERED: Potassium Chloride 20 MEQ Tab.ER PO SCH (10:30)
--- NOTE | 2017-09-01 11:26 | PCM.DCSUM1 ---
Discharge Summary - Hospital Course HPI Initial Comments: This is a 72-year-old female. She saw her family doctor on Thursday and had blood work done that was completely normal. Then about 3 days ago she started having mid abdominal cramps and she went to the bathroom maybe 5 times that day with very small bowel movements and lots of gas. This continued yesterday with the same small bowel movements many times in gas. Then today she again really had no bowel movements but was passing mucus that was pretty much clearer and did not smell bad. She also states that this afternoon she had a fever of 102.8 orally when she got to the ER it was 101.9. She has been eating normally and denies any nausea or vomiting. She does have a history of 2 recent tick bites but she does not have any particular rash at the site oral bolus light rash noted at the sites. She has a history of 2 C-sections in the past she has no history of irritable bowel syndrome Crohn's or colitis and she has no history of constipation. Presently she is not having any particular pain or symptoms. - Discharge Data Discharge Date: 09/01/17 (ADMIT 08/30/17) Discharge Disposition: Home, Self-Care 01 Condition: Good - Discharge Diagnosis/Problem(s) (1) Hyperlipidemia SNOMED Code(s): 14664902 ICD Code: E78.5 - HYPERLIPIDEMIA, UNSPECIFIED Status: Chronic Priority: Low Current Visit: Yes Qualifiers: Hyperlipidemia type: unspecified Qualified Code(s): E78.5 - Hyperlipidemia , unspecified (2) Sigmoid diverticulitis SNOMED Code(s): 374206295 ICD Code: K57.32 - DVTRCLI OF LG INT W/O PERFORATION OR ABSCESS W/O BLEEDING Status: Acute Priority: High Current Visit: Yes (3) Hypertension SNOMED Code(s): 11749230 ICD Code: I10 - ESSENTIAL (PRIMARY) HYPERTENSION Status: Chronic Priority : Medium Current Visit: No Qualifiers: Hypertension type: unspecified Qualified Code(s): I10 - Essential (primary ) hypertension (4) CHARITO (acute kidney injury) SNOMED Code(s): 79454850 ICD Code: N17.9 - ACUTE KIDNEY FAILURE, UNSPECIFIED Status: Acute Priority: High Current Visit: Yes (5) Dehydration SNOMED Code(s): 60522349 ICD Code: E86.0 - DEHYDRATION Status: Resolved Priority: High Current Visit: Yes (6) GERD (gastroesophageal reflux disease) SNOMED Code(s): 828982508 ICD Code: K21.9 - GASTRO-ESOPHAGEAL REFLUX DISEASE WITHOUT ESOPHAGITIS Status: Chronic Priority: Low Current Visit: Yes Qualifiers: Esophagitis presence: esophagitis presence not specified Qualified Code(s) : K21.9 - Gastro-esophageal reflux disease without esophagitis - Patient Summary/Data Operative Procedure(s) Performed: none Complications: none Consults: Consultations 08/30/17 13:57 Consult to Case Management [CONS] Routine 08/31/17 09:00 Consult to Occupational Therapy [OT Evaluation and Treatment] [CONS] Routine 08/31/17 10:00 Consult to Physical Therapy [PT Evaluation and Treatment] [CONS] Routine 08/31/17 14:01 Consult to Dietary [Consult to Dianetic Counselor] [CONS] Routine Labs Pending at D/C: none Recommended Follow-up Testing/Procedures: Follow up with your PCP, Dr. Kwadwo Currie, in 7-10 days: -Referral to GI specialist for colonoscopy (and possible endoscopy with GERD history) -Can talk to him about continuing Prilosec [id number] for GERD Planned Operative Procedure(s) after DC: none Hospital Course: I/P: Sigmoid diverticulitis, improving -ED--> Fever of 101.9; Abdominal pain, small BMs, passing clear mucous and flatulence x3 days -WBC 17.45--> 17.71--> 10.55 -XR abdomen--> nothing acute -CT abdomen--> Diverticulitis within sigmoid colon, numerous diverticuli -Levoquin/Flagyl--> D/C with Cipro 500 BID and Flagyl 500 q8H x 10 days -Heart healthy diet started today--> D/C if tolerates lunch well -Consult to dietary for Diverticulitis diet recommendations -F/U with GI for colonoscopy Resolved: Dehydration -IVF--> D/C today CHARITO -eGFR 54--> now >60 -Cr 1.0--> 0.8 -BUN 16-->13-->14 -Hold Valsartan/HCTZ 320-12.5 --> Restart today -IVF Chronic: Hiatal Hernia/GERD -Found on CT abdomen (small to moderate sized hiatal hernia) -h/o of acid reflux per pt -Was taking OTC Prilosec- stopped d/t warning on box to only take 2 weeks -F/U with PCP -F/U with GI if would like endoscopy to r/o Toribio's CKD, stage II HTN HLD Former Tobacco Plan: Transferred to Med Surg IVF Analgesics NPO except meds/H20/ice chips--> advance as tolerated Daily labs Home meds DVT/GI prophylaxis Consult CM/PT/OT as needed Pt is a Full code; PCP is Kwadwo Currie Sommer has recovered quite well after being admitted for Diverticulitis with Leukocytosis and Fever. The leukocytosis and fever have since resolved. She is still having some loose stools but has been able to advance her diet without problem. She had multiple tests done. CT abdomen showing acute diverticulitis within the sigmoid colon. CT also showed presence of a small to moderate sized hiatal hernia with gastroesophageal reflux. She should follow-up with her primary care provider in 7-10 days. GERD history and treatment can be further worked up by her PCP and GI specialist. She should also have a follow up with a GI specialist for a colonoscopy and possible endoscopy to r/o Toribio's with the GERD history. She was discharged home on Cipro 500 BID and Flagyl 500 q8H x 10 days and Florastor 250mg BID x20 days for completion of Diverticulitis treatment. She will be discharged home today. - Patient Instructions Diet: Heart Healthy Diet (low fiber until symptoms resolved) Activity: As Tolerated Driving: May Drive Today Showering/Bathing: May Shower Notify Provider of: Fever, Increased Pain, Nausea and/or Vomiting - Discharge Plan Prescriptions/Med Rec: Ciprofloxacin HCl [Cipro] 500 mg PO BID 10 Days #20 tablet metroNIDAZOLE [Flagyl] 500 mg PO Q8H 10 Days #30 tab Saccharomyces Boulardii [Florastor] 250 mg PO BID 20 Days #40 cap Home Medications: Home Meds Aspirin 81 mg PO DAILY 12/10/13 [History] Gluc HCl/Csa/Danya Hy/Hyalur Ac [Glucosamine Chondroitin] 1 tab PO DAILY [History] Lactobacillus Acidophilus [Probiotic] 1 each PO DAILY 12/10/13 [History] Multivit-Min/FA/Lycopene/Lut [Centrum Silver] 1 tab PO DAILY 12/10/13 [History] Valsartan/Hydrochlorothiazide [Valsartan-Hctz 320-12.5 mg Tab] 320 mg PO DAILY 12/10/13 [History] Nebivolol [Bystolic] 2.5 mg PO BID 10/08/15 [History] Fish Oil/[place]-3 Fatty Acids [Fish Oil] 1 each PO DAILY 08/29/17 [History] Garlic [Garlique] 1 tab PO DAILY 08/29/17 [History] Ibuprofen [Motrin] 600 mg PO ASDIRECTED 08/29/17 [History] Magnesium 1 tab PO DAILY 08/29/17 [History] Pravastatin [Pravachol] 40 mg PO BEDTIME 08/29/17 [History] Ubidecarenone [Co Q-10] 1 tab PO DAILY 08/29/17 [History] Vit C/Mcmillan & Celery Ex/Grp E [Tart Mcmillan] 1 cap PO DAILY 08/29/17 [History] Allopurinol [Zyloprim] 50 mg PO BEDTIME 08/30/17 [History] Calcium Citrate/Vitamin D3 [Calcium Citrate - Vit D Caplet] 1 tab PO DAILY 08/30 [History] Carboxymethyl/Glycerin/Poly80 [Refresh Optive Advanced Drops] 1 drop EYEBOTH DAILY 08/30/17 [History] Cholecalciferol (Vitamin D3) [Vitamin D3] 1,000 units PO DAILY 08/30/17 [History ] Ciprofloxacin HCl [Cipro] 500 mg PO BID 10 Days #20 tablet 09/01/17 [Rx] Saccharomyces Boulardii [Florastor] 250 mg PO BID 20 Days #40 cap 09/01/17 [Rx] metroNIDAZOLE [Flagyl] 500 mg PO Q8H 10 Days #30 tab 09/01/17 [Rx] Patient Handouts: High-Fiber Diet, Food Choices for Gastroesophageal Reflux Disease, Adult, [id number], Diverticulitis, [id number], Hiatal Hernia, Gastroesophageal Reflux Disease, Adult, [id number] Referrals: Kwadwo Currie MD [Primary Care Provider] - - Discharge Summary/Plan Comment DC Time >30 min.: Yes (40) - General Info Date of Service: 09/01/17 Admission Dx/Problem (Free Text: Admission Diagnosis/Problem Admission Diagnosis/Problem Diverticulitis Subjective Update: In to see [place] today. She is lying in bed. Overall she is doing quite well and states she is feeling better. She has no complaints, except she did have trouble sleeping due to a bad dream last night-most likely due to the Restoril. Good appetite- she has been advanced to a heart healthy diet. Ambulating. Pain is controlled. No fever, abdominal pain, nausea, vomiting. She is having some loose stools, but she says it's not diarrhea. She is also having some gas. Urinating. Incentive Spirometry. No concerns from nursing. Will most likely be D /C'd home today pending how she handles lunch. Functional Status: Reports: Pain Controlled, Tolerating Diet, Ambulating, Urinating - Review of Systems General: Reports: No Symptoms. Denies: Fever, Chills HEENT: Reports: No Symptoms Pulmonary: Reports: No Symptoms Cardiovascular: Reports: No Symptoms Gastrointestinal: Reports: No Symptoms, Flatus, Other (loose stools). Denies: Constipation, Diarrhea, Hematochezia, Nausea, Vomiting Genitourinary: Reports: No Symptoms. Denies: Dysuria, Frequency, Burning, Pain , Urgency Musculoskeletal: Reports: No Symptoms Skin: Reports: No Symptoms Neurological: Reports: No Symptoms Psychiatric: Reports: No Symptoms - Patient Data Vitals - Most Recent: Last Vital Signs Temp 98.4 F 09/01/17 07:44 Pulse 78 09/01/17 10:04 Resp 20 09/01/17 07:44 BP 138/67 09/01/17 10:04 Pulse Ox 96 09/01/17 07:44 Weight - Most Recent: 217 lb 8 oz I&O - Last 24 hours: Intake & Output 08/31/17 09/01/17 09/01/17 22:59 06:59 14:59 Intake Total 1020 1050 Output Total 1200 2100 Balance -180 -1050 Lab Results - Last 24 hrs: Laboratory Results - last 24 hr 09/01/17 Range/Units 06:29 Sodium 137 (136-145) mEq/L Potassium 3.4 L (3.5-5.1) mEq/L Chloride 102 (98-107) mEq/L Carbon Dioxide 25 (21-32) mEq/L Anion Gap 13.4 (5-15) BUN 18 (7-18) mg/dL Creatinine 0.9 (0.55-1.02) mg/dL Est Cr Clr Drug Dosing 53.33 mL/min Estimated GFR (MDRD) > 60 (>60) mL/min BUN/Creatinine Ratio 20.0 H (14-18) Glucose 104 (83-115) mg/dL Calcium 8.7 (8.5-10.1) mg/dL Med Orders - Current: Current Medications Acetaminophen (Tylenol) 650 mg PO Q4H PRN PRN Reason: Pain/Fever Last Admin: 08/31/17 22:50 Dose: 650 mg Allopurinol (Zyloprim) 50 mg PO BEDTIME [facility] Last Admin: 08/31/17 21:12 Dose: 50 mg Aspirin (Aspirin) 81 mg PO DAILY [facility] Last Admin: 09/01/17 10:03 Dose: 81 mg Calcium Carbonate (Calcium Carbonate/Vitamin D 600 Mg-200 Unit) 1 tab PO DAILY [facility] Last Admin: 09/01/17 10:03 Dose: 1 tab Carvedilol (Coreg) 3.125 mg PO BID [facility] Last Admin: 09/01/17 10:04 Dose: 3.125 mg Enoxaparin Sodium (Lovenox) 40 mg SUBCUT Q24H [facility] Last Admin: 08/31/17 14:14 Dose: 40 mg Hydrochlorothiazide (Hydrochlorothiazide) 12.5 mg PO DAILY [facility] Last Admin: 09/01/17 10:03 Dose: 12.5 mg Hydromorphone HCl (Dilaudid) 0.25 mg IVPUSH Q6H PRN PRN Reason: Pain Metronidazole 500 mg/ Premix 100 mls @ 100 mls/hr IV Q8H [facility] Last Admin: 09/01/17 05:36 Dose: 100 mls/hr Levofloxacin/Dextrose 750 mg/ (Premix) 150 mls @ 100 mls/hr IV Q48H [facility] Last Admin: 09/01/17 00:11 Dose: 100 mls/hr Ketorolac Tromethamine (Toradol) 15 mg IVPUSH Q8H PRN PRN Reason: Abdominal Pain Losartan Potassium (Cozaar) 150 mg PO DAILY [facility] Last Admin: 09/01/17 09:59 Dose: 150 mg Ondansetron HCl (Zofran) 4 mg IVPUSH Q8H PRN PRN Reason: Nausea/Vomiting Potassium Chloride (Pharmacy To Dose - Potassium Replacement) 1 dose .XX ASDIRECTED [facility] Saccharomyces Boulardii (Florastor) 250 mg PO DAILY [facility] Last Admin: 09/01/17 10:03 Dose: 250 mg Simvastatin (Zocor) 20 mg PO BEDTIME [facility] Last Admin: 08/31/17 21:13 Dose: 20 mg Temazepam (Restoril) 7.5 mg PO BEDTIME PRN PRN Reason: Insomnia Last Admin: 08/31/17 21:15 Dose: 7.5 mg Discontinued Medications Diatrizoate Meglum/Diatrizoate Sod (Gastrografin 37%) 90 ml PO ONETIME ONE Stop: 08/29/17 23:35 Last Admin: 08/29/17 23:48 Dose: 90 ml Furosemide (Lasix) 10 mg IVPUSH NOW ONE Stop: 08/31/17 14:00 Last Admin: 08/31/17 14:14 Dose: 10 mg Hydromorphone HCl (Dilaudid) 0.25 mg PO Q6H PRN PRN Reason: Pain Hydromorphone HCl (Dilaudid) 0.5 mg IVPUSH Q4H PRN PRN Reason: pain Levofloxacin/Dextrose 750 mg/ (Premix) 150 mls @ 100 mls/hr IV ONETIME ONE Stop: 08/30/17 02:24 Last Admin: 08/30/17 01:17 Dose: 100 mls/hr Sodium Chloride (Normal Saline) 1,000 mls @ 100 mls/hr IV ASDIRECTED [facility] Last Admin: 08/30/17 03:10 Dose: 100 mls/hr Sodium Chloride (Normal Saline) 1,000 mls @ 100 mls/hr IV ASDIRECTED [facility] Last Admin: 08/31/17 08:44 Dose: 100 mls/hr Sodium Chloride (Normal Saline) 1,000 mls @ 100 mls/hr IV ASDIRECTED [facility] Levofloxacin/Dextrose 750 mg/ (Premix) 150 mls @ 100 mls/hr IV Q48H [facility] Last Admin: 09/01/17 00:21 Dose: Not Given Iopamidol (Isovue-300 (61%)) 125 ml IVPUSH ONETIME ONE Stop: 08/29/17 23:35 Last Admin: 08/29/17 23:49 Dose: 125 ml Non-Formulary Medication (Magnesium [Magnesium]) 1 tab PO DAILY [facility] Non-Formulary Medication (Ubidecarenone [Co Q-10]) 1 tab PO DAILY [facility] Potassium Chloride (Klor-Con M20) 40 meq PO Q4H [facility] Stop: 09/01/17 14:31 Sodium Chloride (Saline Flush) 10 ml FLUSH ONETIME ONE Stop: 08/29/17 23:35 Last Admin: 08/29/17 23:49 Dose: 10 ml - Exam Quality Assessment: Reports: DVT Prophylaxis General: Reports: Alert, Oriented, Cooperative, No Acute Distress HEENT: Reports: Pupils Equal, Pupils Reactive, EOMI, Mucous Membr. Moist/[place] Neck: Reports: Supple Lungs: Reports: Clear to Auscultation, Normal Respiratory Effort Cardiovascular: Reports: Regular Rate, Regular Rhythm GI/Abdominal Exam: Normal Bowel Sounds (hyperactive), Soft, Non-Tender, No Organomegaly, No Distention, No Abnormal Bruit, No Mass, Pelvis Stable (Female) Exam: Deferred Rectal (Female) Exam: Deferred Back Exam: Reports: Normal Inspection, Full Range of Motion Extremities: Normal Inspection, Normal Range of Motion, Non-Tender, No Pedal Edema, Normal Capillary Refill Skin: Reports: Warm, Dry, Intact Neurological: Reports: No New Focal Deficit Psy/Mental Status: Reports: Alert, Normal Affect, Normal Mood
== END 2017-09-01 15:00 | disposition home or self-care (01) | DRG 392 ==
LOC: JD.ED 20:37 → JD.MS 08-30 03:20
PROVIDERS: ADMIT Internal Medicine Cardiovascular Disease; ATTEND Internal Medicine Cardiovascular Disease
DX: K57.32 Diverticulitis of large intestine without perforation or abscess without bleeding (principal); I10 Essential (primary) hypertension; N17.9 Acute kidney failure, unspecified; I12.9 Hypertensive chronic kidney disease with stage 1 through stage 4 chronic kidney disease, or unspecified chronic kidney disease; Z88.3 Allergy status to other anti-infective agents; N18.2 Chronic kidney disease, stage 2 (mild); E86.0 Dehydration; E78.5 Hyperlipidemia, unspecified; I67.1 Cerebral aneurysm, nonruptured; G89.29 Other chronic pain; M54.9 Dorsalgia, unspecified; Z79.82 Long term (current) use of aspirin; Z79.899 Other long term (current) drug therapy; Z87.440 Personal history of urinary (tract) infections; Z87.891 Personal history of nicotine dependence
CPT/HCPCS: 36415; 74019; 74177; 80053; 81001; 83690; 85025; 96365; 96366; 99285; J1956; J7040; J7050; Q9963; Q9967; 80048; 83605; 83735; 97161-GP; 97165-GO; 99284; A9270-GY; J1650

== ENCOUNTER 2018-03-28 13:05 | Emergency (ER) | payer MEDICARE, BC ==
--- NOTE | 2018-03-28 13:15 | EDM.PDOC ---
ED HPI GENERAL MEDICAL PROBLEM - General Chief Complaint: Abdominal Pain Stated Complaint: SENT BY UPPER JAY MULTIPLE ISSUES Time Seen by Provider: 03/28/18 13:14 Source of Information: Reports: Patient History Limitations: Reports: No Limitations - History of Present Illness INITIAL COMMENTS - FREE TEXT/NARRATIVE: 72-year-old female presented to the ED after being seen at the walk-in clinic at [place]. She attended the clinic primarily because she's not feeling well for the last 3 days with nonspecific nausea and feeling of abdominal bloating with a lot of belching and burping. She reports that she has not ate or drank much the last couple of days. She was concerned that she had a recurrence of her diverticulitis which was her primary reason for attending the clinic. She reports no fever or chills. She states her bowel function has been sluggish and not as much is normal. No pause passing her urine. CT scan of abdomen was done at that institute which revealed a 3 mm subpleural nodule in the left lower lobe lobar lung. Findings are suggestive of an intrapulmonary lymph node follow- up CT scan recommended in [address] abdomen reveals cholelithiasis with mild mural enhancement of the gallbladder correlation with an acute cholecystitis is recommended. Liver and spleen are normal and indeterminate 18 mm adrenal nodules appreciated on the left side there is a right parapelvic renal cyst. Sigmoid diverticulosis appreciated without evidence of diverticulitis appendix is normal there is a 2 cm exophytic heterogenous mass within the left midportion of the kidney consistent with likely renal cell carcinoma. Labs done showed a 12.2 white blood cell count with a slight left shift of 71% neutrophils with normal being 8.0. Hemoglobin is 13.2 with hematocrit of 40.1. Platelet count is normal 298,000. Glucose is 109. BUN was 18 with a creatinine of 1.0. BUN/creatinine ratio is 18.0. Sodium 138 with potassium of 4.7. Chloride 98 with a bicarbonate 29. Anion gap is normal at 16 calcium 9.1 with a total protein of 7.6 and albumin fraction of 4.2. Liver function was completely normal bilirubin is 1.0 alk phosphatase is 79. Amylase was reported to be normal but I do not have the actual value. Analysis showed trace of blood with no signs of infection. Onset: Gradual Onset Date: 03/26/18 (Has not felt well since Pedro with nonspecific nausea excessive belching and abdominal bloated feeling) Duration: Waxing/Waning Location: Reports: Abdomen (Abuse primarily upper abdominal pain epigastrium and across both upper quadrants.) Quality: Reports: Ache, Pressure, Other (Associate with excessive belching burping.) Severity: Moderate Improves with: Reports: None Worsens with: Reports: Eating Context: Denies: Activity, Exercise, Lifting, Sick Contact, Trauma, Other Associated Symptoms: Reports: Loss of Appetite, Nausea/Vomiting (Nonspecific nausea now gone.). 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) (None receive no treatment at the clinic.) Abdomen Pain Score (Numeric/FACES): 5 - Related Data Allergies Allergy/AdvReac Type Severity Reaction Status Date / Time minocycline AdvReac Dizziness Verified 08/30/17 00:40 Home Meds: Home Meds Aspirin 81 mg PO DAILY 12/10/13 [History] Gluc HCl/Csa/Danya Hy/Hyalur Ac [Glucosamine Chondroitin] 1 tab PO DAILY [History] Lactobacillus Acidophilus [Probiotic] 1 each PO DAILY 12/10/13 [History] Multivit-Min/FA/Lycopene/Lut [Centrum Silver] 1 tab PO DAILY 12/10/13 [History] Valsartan/Hydrochlorothiazide [Valsartan-Hctz 320-12.5 mg Tab] 320 mg PO DAILY 12/10/13 [History] Nebivolol [Bystolic] 2.5 mg PO BID 10/08/15 [History] Fish Oil/[place]-3 Fatty Acids [Fish Oil] 1 each PO DAILY 08/29/17 [History] Garlic [Garlique] 1 tab PO DAILY 08/29/17 [History] Ibuprofen [Motrin] 600 mg PO ASDIRECTED 08/29/17 [History] Magnesium 1 tab PO DAILY 08/29/17 [History] Pravastatin [Pravachol] 40 mg PO BEDTIME 08/29/17 [History] Ubidecarenone [Co Q-10] 1 tab PO DAILY 08/29/17 [History] Vit C/Mcmillan & Celery Ex/Grp E [Tart Mcmillan] 1 cap PO DAILY 08/29/17 [History] Allopurinol [Zyloprim] 50 mg PO BEDTIME 08/30/17 [History] Calcium Citrate/Vitamin D3 [Calcium Citrate - Vit D Caplet] 1 tab PO DAILY 08/30 [History] Carboxymethyl/Glycerin/Poly80 [Refresh Optive Advanced Drops] 1 drop EYEBOTH DAILY 08/30/17 [History] Cholecalciferol (Vitamin D3) [Vitamin D3] 1,000 units PO DAILY 08/30/17 [History ] Ciprofloxacin HCl [Cipro] 500 mg PO BID 10 Days #20 tablet 09/01/17 [Rx] Saccharomyces Boulardii [Florastor] 250 mg PO BID 20 Days #40 cap 09/01/17 [Rx] metroNIDAZOLE [Flagyl] 500 mg PO Q8H 10 Days #30 tab 09/01/17 [Rx] Past Medical History HEENT History: Reports: Impaired Vision Cardiovascular History: Reports: Hypertension Genitourinary History: Reports: UTI, Recurrent 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: Musculoskeletal History: Reports: Back Pain, Chronic Neurological History: Reports: Cerebral Aneurysms - Infectious Disease History Infectious Disease History: Reports: Chicken Pox, Influenza, Measles - Past Surgical History HEENT Surgical History: Reports: Tonsillectomy Female Surgical History: Reports: Section Social & Family History - Family History Family Medical History: Noncontributory Cardiac: Reports: Hypertension Musculoskeletal: Reports: Other (See Below) Other Musculoskeletal Family History: ALS Oncologic: Reports: Bladder, Breast, Hodgkin's Lymphoma, Leukemia, Lung - Caffeine Use Caffeine Use: Reports: Coffee - Living Situation & Occupation Living situation: Reports: Occupation: Retired [employer] [facility] - Review of Systems Review Of Systems: See Below Constitutional: Reports: Malaise, Fatigue, Decreased Appetite. Denies: Fever, Chills HEENT: Reports: Glasses Respiratory: Reports: No Symptoms Cardiovascular: Reports: No Symptoms Endocrine: Reports: Fatigue GI/Abdominal: Reports: Abdominal Pain, Constipation (Bowels been sluggish.), Distension (More abdominal pressure discomfort upper abdomen. Feeling bloated.) , Nausea (Intermittent nausea). Denies: Hematemesis, Hematochezia, Melena, Vomiting, Other : Reports: Incontinence (Occasional problems with stress incontinence) Musculoskeletal: Reports: Back Pain, Joint Pain (These and hips at times) Skin: Reports: No Symptoms Neurological: Reports: No Symptoms Psychiatric: Reports: No Symptoms Hematologic/Lymphatic: Reports: No Symptoms Immunologic: Reports: No Symptoms ED EXAM, GI/ABD - Physical Exam Exam: See Below Exam Limited By: No Limitations General Appearance: Alert, WD/WN, Anxious Eyes: Bilateral: Normal Appearance Respiratory/Chest: No Respiratory Distress, Lungs Clear, Normal Breath Sounds, No Accessory Muscle Use, Chest Non-Tender Cardiovascular: Normal Peripheral Pulses, Regular Rate, Rhythm, No Edema, No Gallop, No Murmur, No Rub GI/Abdominal Exam: Soft, Non-Tender, No Organomegaly, No Abnormal Bruit, No Mass , Pelvis Stable, Abnormal Bowel Sounds (Bowel sounds are quite active in all 4 quadrants.), Other (Well-healed midline surgical scars from done a classical fashion 2 from pubic symphysis to the umbilicus.) Back Exam: Normal Inspection, Full Range of Motion. No: CVA Tenderness (L), CVA Tenderness (R) Extremities: Normal Inspection, Normal Range of Motion, Non-Tender, No Pedal Edema Neurological: Alert, Oriented, CN II-XII Intact, Normal Cognition, Normal Gait Psychiatric: Anxious Skin Exam: Warm, Dry, Intact, Normal Color, No Rash Course - Vital Signs Last Recorded V/S: Last Vital Signs Temp 36.3 C 03/28/18 13:18 Pulse 66 03/28/18 13:18 Resp 20 03/28/18 13:18 BP 168/99 H 03/28/18 13:18 Pulse Ox 99 03/28/18 13:18 - Orders/Labs/Meds Meds: Medications Discontinued Medications Generic Name Dose Route Start Last Admin Trade Name Vuq PRN Reason Stop Dose Admin Magnesium Citrate 240 ml 03/28/18 15:45 Citrate Of Magnesia PO 03/28/18 15:46 ONETIME ONE Ondansetron HCl 4 mg 03/28/18 15:46 Zofran Odt PO 03/28/18 15:47 ONETIME ONE - Radiology Interpretation Free Text/Narrative:: 72-year-old female presents to the ED at the request of [facility] walk-in clinic physician. She had attended the clinic with nonspecific nausea excessive belching bloating and abdominal distention for the last 2 days. She hasn't been eating all that well. No fever or chills. Nonspecific intermittent nausea. Concerned that her diverticulitis might be acting up again. She had routine lab work which really was uneventful. White count was mildly elevated at 12.2 with 71% neutrophils. Urinalysis showed trace of blood. T scan of the abdomen was done with oral IV contrast and did reveal cholelithiasis which we knew she had. Unable to tell for sure if she had significant cholelithiasis but this appears unlikely since she is not tender in the right upper quadrant my exam. No diverticulitis was identified although she has extensive diverticulosis of the sigmoid colon. Incidental finding was that of a 1.8 mm nodule in the left adrenal gland which is unchanged from the one done in August. She does have an exophytic 2 cm heterogenous mass midportion of the left kidney which is very concerning for renal cell carcinoma. Urinalysis did show 1+ hematuria. However on my inspection of the CT scan scan done today she has diffuse stool throughout the entire colon compatible with constipation. She has no pain or nausea and the time of my exam. Plan : Ultrasound of the gallbladder to be performed to rule out acute cholelithiasis although I think this is unlikely. I suspect that most of her problems are secondary to constipation. - Re-Assessments/Exams Free Text/Narrative Re-Assessment/Exam: 03/28/18 15:39 ultrasound of the gallbladder confirms large gallstones with gallbladder measuring about 2.4 cm in size. This gallstone is a shadowing and interferes with evaluation of the portions of the gallbladder or biliary duct dilatation is appreciated. There is no pericholecystic fluid to suggest acute cholecystitis. I therefore believe her primary problem is that of constipation. She will be treated with 8 ounces of magnesium citrate by mouth next with sick 5 -6 ounces of juice of choice. This should provide bowel cleanse. I will have her follow-up with Dr. Winston in the clinic as soon as possible in regards to arranging urology consultation regards to left renal mass discovered by CT today. Is also a 1.8 cm mass in the left adrenal gland which may or may not be related to the suspect renal cell carcinoma of the left kidney. The adrenal mass or incidental normal was identified on CT done in August 2017.. No follow-up raises are made as she will be seeing Dr. Winston shortly. Departure - Departure Time of Disposition: 15:45 Disposition: Home, Self-Care 01 Condition: Fair Clinical Impression: Constipation by delayed colonic transit Abdominal pain Qualifiers: Abdominal location: epigastric Qualified Code(s): R10.13 - Epigastric pain - Discharge Information *PRESCRIPTION DRUG MONITORING PROGRAM REVIEWED*: Not Applicable *COPY OF PRESCRIPTION DRUG MONITORING REPORT IN PATIENT JAVI: Not Applicable Instructions: Constipation, Adult Referrals: Kwadwo Currie MD [Primary Care Provider] - Forms: ED Department Discharge Additional Instructions: Evaluation the emergent today at the request of [facility] walk-in doctor due to findings of gallstones and unexplained abdominal pain. The CT scan done at that institution also identified a growth presumably a tumor likely cancer of the left kidney. Units early stages and is only 2 cm in size smaller than a golf ball. This is caused a small amount of blood to show up a new urinalysis 2. No signs of infection however. After side of your gallbladder was performed here as a black of the availability of emergency medical technician today at the clinic. It confirms gallstones in the gallbladder but no signs of acute infection of the gallbladder which we call cholelithiasis. The CT reveals a large amount of stool throughout most of the colon and I believe your abdominal pain and bloat and nausea has is primarily due to constipation. Could find no signs or sources of infection. Treatment is therefore magnesium citrate 7-8 ounces by mouth mixed with 5-6 ounces of juice of choice taken once by mouth. This will begin to work in 1-2 hours and her bowels will usually work 3 or 4 times sometimes ending in some diarrhea. This should relieve a good portion of your abdominal discomfort. Dr. Reynolds's office tomorrow to arrange an appointment to see him when able able. He will then arrange for you to see urologist likely Dr. Pagan in [place] was able to perform immobile of kidneys with the aid of the da Edson robot. Left kidney mass desires further investigation and also other tests to make sure that the other kidney is functioning well enough to tolerate loss of the left kidney.
[2018-03-28 13:20] VITALS: BP 168/99
--- NOTE | 2018-03-28 15:27 | US ---
Limited abdominal ultrasound: Multiple real-time images of the upper right abdomen were obtained. Comparison: Prior CT abdomen and pelvis exam performed at another institution dated on the same day at time 11:36 AM. Findings: Liver shows no focal parenchymal abnormality. Large gallstone is seen within the gallbladder which measures about 2.4 cm in size. Shadowing from this gallstone interferes with evaluation of other portions of the gallbladder. Common bile duct measures 6 mm which is normal. Cyst is noted within the right renal pelvis measuring 4.4 cm. Right kidney shows no hydronephrosis. Right kidney length is 11.0 cm. Pancreas appears within normal limits. Portal vein shows normal hepatopedal flow. Impression: 1. Large gallstone within the gallbladder measuring about 2.4 cm in size. This gallstone causes shadowing and interferes with evaluation of other portions of the gallbladder. No biliary duct dilatation is seen. 2. Incidental parapelvic cyst within the right kidney measuring 4.4 cm. 3. No additional abnormality is appreciated on right upper quadrant abdominal ultrasound exam. Diagnostic code #3
[2018-03-28] MEDS ORDERED: Magnesium Citrate Solution 296 ML Bottle PO ONE (15:45)
[2018-03-28] MEDS ORDERED: Ondansetron 4 MG Tab.DIS PO ONE (15:46)
== END 2018-03-28 15:52 | disposition home or self-care (01) ==
LOC: JD.ED 13:05
DX: K59.01 Slow transit constipation (principal); I10 Essential (primary) hypertension; Z88.8 Allergy status to other drugs, medicaments and biological substances; Z79.82 Long term (current) use of aspirin; Z79.899 Other long term (current) drug therapy; Z98.890 Other specified postprocedural states
CPT/HCPCS: 76705; 76705-26; 99284-25

== ENCOUNTER 2021-09-19 07:13 | Day surgery (SDC) | payer MEDICARE, BC ==
[2021-09-19 07:08] VITALS: PULSE 65
[2021-09-19] MEDS: Polymyxin B/Trimethoprim 10 ML Bottle EYELF SCH ×4 (07:10→08:46)
[2021-09-19] MEDS: Brimonidine 0.2% Ophth Soln 5 ML Bottle EYELF SCH ×4 (07:15→08:46)
[2021-09-19] MEDS: Phenylephrine 2.5% Ophth Soln 2 ML Bot EYELF SCH ×5 (07:20→07:50)
[2021-09-19] MEDS: Tropicamide 1% Ophth Soln 15 ML Bottle EYELF SCH ×4 (07:25→07:53)
[2021-09-19] MEDS: Tetracaine HCl/PF 0.5% 4 ML Bottle EYEBOTH SCH ×5 (07:36→08:32)
[2021-09-19] MEDS: Cefuroxime 10 MG/ML SYRINGE EYELF SCH ×2 (07:36→08:45)
[2021-09-19] MEDS: Lidocaine 1% PF 2 ML SDV INJECT SCH ×2 (07:36→08:32)
[2021-09-19] MEDS: Pilocarpine 4% Ophth Soln 15 ML Bot EYELF SCH ×2 (07:37→08:46)
[2021-09-19 09:13] VITALS: BP 148/68
== END 2021-09-19 08:55 | disposition home or self-care (01) ==
LOC: JD.SDS 07:13
PROVIDERS: ATTEND Ophthalmology
DX: H25.813 Combined forms of age-related cataract, bilateral (principal); E78.00 Pure hypercholesterolemia, unspecified; M10.9 Gout, unspecified; I10 Essential (primary) hypertension; K21.9 Gastro-esophageal reflux disease without esophagitis; Z88.8 Allergy status to other drugs, medicaments and biological substances; Z98.890 Other specified postprocedural states; Z87.891 Personal history of nicotine dependence; Z79.82 Long term (current) use of aspirin
CPT/HCPCS: 66984; J0697; C1780

== ENCOUNTER 2021-10-17 13:36 | Day surgery (SDC) | payer MEDICARE, BC ==
[~2021-10-17 13:36] MED LIST: Cefuroxime 10 MG/ML SYRINGE EYERT SCH; Lidocaine 1% PF 2 ML SDV INJECT SCH; Pilocarpine 4% Ophth Soln 15 ML Bot EYERT SCH
[2021-10-17] MEDS: Polymyxin B/Trimethoprim 10 ML Bottle EYERT SCH ×3 (14:06→16:11)
[2021-10-17] MEDS: Brimonidine 0.2% Ophth Soln 5 ML Bottle EYERT SCH ×3 (14:11→16:11)
[2021-10-17] MEDS: Phenylephrine 2.5% Ophth Soln 2 ML Bot EYERT SCH ×5 (14:16→15:53)
[2021-10-17] MEDS: Tropicamide 1% Ophth Soln 15 ML Bottle EYERT SCH ×4 (14:22→15:28)
[2021-10-17] MEDS: Tetracaine HCl/PF 0.5% 4 ML Bottle EYEBOTH SCH ×4 (15:34→17:44)
[2021-10-17 16:30] VITALS: BP 144/80; PULSE 64
== END 2021-10-17 16:20 | disposition home or self-care (01) ==
LOC: JD.SDS 13:36
PROVIDERS: ATTEND Ophthalmology
DX: E11.36 Type 2 diabetes mellitus with diabetic cataract (principal); H25.811 Combined forms of age-related cataract, right eye; H16.223 Keratoconjunctivitis sicca, not specified as Sjogren's, bilateral; H43.813 Vitreous degeneration, bilateral; E78.00 Pure hypercholesterolemia, unspecified; M10.9 Gout, unspecified; I10 Essential (primary) hypertension; Z98.890 Other specified postprocedural states; Z87.891 Personal history of nicotine dependence; Z79.899 Other long term (current) drug therapy; Z79.82 Long term (current) use of aspirin; Z88.8 Allergy status to other drugs, medicaments and biological substances; Z96.1 Presence of intraocular lens
CPT/HCPCS: 66984; J0697; C1780